=== PATIENT | female | born 1970 | race Hispanic/Latino ===

== ENCOUNTER 2017-08-25 17:52 | Emergency (ER) | payer MEDICAID ==
[2017-08-25 18:18] VITALS: BP 124/87; PULSE 95; RESP 17; TEMP 97.7; O2SAT 98; BMI 28.3
--- NOTE | 2017-08-25 18:25 | ED PDOC ---
Arrival/HPI - General Chief Complaint: Back Pain Time Seen by Provider: 08/25/17 18:06 Historian: Patient - History of Present Illness Narrative History of Present Illness (Text): 08/25/17 18:21 46yo female who present with complaint of lower back pain x 2days. she notes history of herniated disc. Notes history of similar pain in the past. states her pain usually resolve with Naprosyn, but she ran out of Naprosyn. Pain is usually with ambulation or movement. she took OTC motrin without relieve. she denies abdominal pain, ripping/tearing upper back pain, trauma, focal weakness, urinary/fecal incontinence, any other complaint. Past Medical History - Provider Review Nursing Documentation Reviewed: Yes - Cardiac Hx Hypertension: Yes - Pulmonary Hx Respiratory Disorders: No - Neurological Hx Neurological Disorder: No - HEENT Hx HEENT Disorder: No - Renal Hx Renal Disorder: No - Endocrine/Metabolic Hx Endocrine Disorders: No - Hematological/Oncological Hx Blood Disorders: No - Integumentary Hx Dermatological Disorder: No - Musculoskeletal/Rheumatological Hx Musculoskeletal Disorders: No - Gastrointestinal Hx Gastrointestinal Disorders: No - Genitourinary/Gynecological Hx Genitourinary Disorders: No - Psychiatric Hx Psychophysiologic Disorder: No Hx Substance Use: No - Surgical History Hx Hysterectomy: Yes - Anesthesia Hx Anesthesia: Yes Family/Social History - Physician Review Nursing Documentation Reviewed: Yes Family/Social History: Unknown Family HX Smoking Status: Never Smoked Hx Alcohol Use: No Hx Substance Use: No Allergies/Home Meds Allergies/Adverse Reactions: Allergies No Known Allergies Allergy (Verified 08/25/17 18:18) Review of Systems - Physician Review All systems were reviewed & negative as marked: Yes - Review of Systems Constitutional: Normal Eyes: Normal ENT: Normal Respiratory: Normal Cardiovascular: Normal Gastrointestinal: Normal Genitourinary Female: Normal Musculoskeletal: Back Pain Skin: Normal Neurological: Normal Endocrine: Normal Hemo/Lymphatic: Normal Psychiatric: Normal Physical Exam Vital Signs Reviewed: Yes Vital Signs Temp Pulse Resp BP Pulse Ox 08/25/17 18:18 97.7 F 95 H 17 124/87 98 08/25/17 18:17 97.7 F 95 H 17 124/87 98 Temperature: Afebrile Blood Pressure: Normal Pulse: Regular Respiratory Rate: Normal Appearance: Positive for: Well-Appearing, Non-Toxic, Comfortable Pain Distress: Mild Mental Status: Positive for: Alert and Oriented X 3 - Systems Exam Head: Present: Atraumatic, Normocephalic Pupils: Present: PERRL Extroacular Muscles: Present: EOMI Conjunctiva: Present: Normal Mouth: Present: Moist Mucous Membranes Neck: Present: Normal Range of Motion Respiratory/Chest: Present: Clear to Auscultation, Good Air Exchange. No: Respiratory Distress, Accessory Muscle Use Cardiovascular: Present: Regular Rate and Rhythm, Normal S1, S2. No: Murmurs Abdomen: Present: Normal Bowel Sounds. No: Tenderness, Distention, Peritoneal Signs Back: Present: Pain with Leg Raise (B/L). No: Midline Tenderness, Paraspinal Tenderness Upper Extremity: Present: Normal Inspection. No: Cyanosis, Edema Lower Extremity: Present: Normal Inspection. No: Edema Neurological: Present: GCS=15, CN II-XII Intact, Speech Normal Skin: Present: Warm, Dry, Normal Color. No: Rashes Psychiatric: Present: Alert, Oriented x 3, Normal Insight, Normal Concentration Medical Decision Making ED Course and Treatment: 08/25/17 22:46 Pt was ambulatory with normal gait on DC. She was DC home with Naprosyn and flexeril. Referred to her PMD. TRT ED for any new or worsening symptoms - Medication Orders Current Medication Orders: Discontinued Medications Diazepam (Valium) 5 mg PO ONCE ONE PRN Reason: Protocol Stop: 08/25/17 18:22 Last Admin: 08/25/17 18:57 Dose: 5 mg Ketorolac Tromethamine (Toradol) 60 mg IM STAT STA Stop: 08/25/17 18:22 Last Admin: 08/25/17 18:57 Dose: 60 mg MAR Pain Assessment Document 08/25/17 18:57 [place] (Rec: 08/25/17 18:57 [id number]) Pain Reassessment Is this a pain reassessment? No Sleep Is patient sleeping during reassessment? No Presence of Pain Presence of Pain Yes Pain Scale Used Pain Scale Used Numeric IM Administration Charges Document 08/25/17 18:57 [place] (Rec: 08/25/17 18:57 [place] [email or web address]) Charges for Administration # of IM Administrations 1 Disposition/Present on Arrival - Present on Arrival Any Indicators Present on Arrival: No History of DVT/PE: No History of Uncontrolled Diabetes: No Urinary Catheter: No History of Decub. Ulcer: No History Surgical Site Infection Following: None - Disposition Have Diagnosis and Disposition been Completed?: Yes Diagnosis: Back pain Disposition: HOME/ ROUTINE Disposition Time: 19:30 Patient Plan: Discharge Condition: FAIR Discharge Instructions (ExitCare): Back Pain (ED) Additional Instructions: Follow up with your doctor Return to ED for any new or worsening symptoms Prescriptions: Cyclobenzaprine [Cyclobenzaprine HCl] 10 mg PO BID #10 tab Naproxen [Naprosyn] 500 mg PO BID #20 tab Omeprazole 20 mg PO DAILY #10 capsule. [place]errals: [facility] [place] [facility] [place] - Follow up with primary Forms: [employer] (Greenlandic)
== END 2017-08-25 19:02 | disposition home or self-care (01) ==
LOC: ED 17:52
DX: M54.5 Low back pain (principal); I10 Essential (primary) hypertension
CPT/HCPCS: 96372; 99283; J1885

== ENCOUNTER 2018-10-22 16:48 | Emergency (ER) | payer MEDICAID ==
[2018-10-22 16:49] VITALS: BMI 28.3
[2018-10-22 16:56] VITALS: RESP 18; TEMP 98.6
[2018-10-22] MEDS ORDERED: Apap-Butalbital-Caffeine 325-50-40mg Tab PO STA (17:32)
--- NOTE | 2018-10-22 17:42 | ED PDOC ---
Arrival/HPI - General Chief Complaint: High Blood Pressure Historian: Patient - History of Present Illness Narrative History of Present Illness (Text): 10/22/18 17:33 47 y/o F w/ h/o HTN presenting to the Emergency Room complaining of gradual onset of a right sided headache. She describes her headache originating near the right spiritism with associated dizziness. She admits to not taking her antihypertensive medication(Lisinopril) for for the last 2 days after running out of her medications. She attributed her symptoms to her blood pressure being elevated. She denies taking any medication prior arrival for the pain. She denies chest pain, shortness of breath, back pain, visual disturbances, parathesias, back pain, jaw pain, abdominal pain, dysuria, hematuria, syncopal episodes, back pain nausea or vomiting. Time/Duration: 24 hours Symptom Onset: Gradual Symptom Course: Unchanged Quality: Pressure Severity Level: Moderate Activities at Onset: Rest Context: Home Past Medical History - Provider Review Nursing Documentation Reviewed: Yes - Travel History Have you recently traveled outside [place] w/in the past 3 mons?: No - Cardiac Hx Hypertension: Yes - Pulmonary Hx Respiratory Disorders: No - Neurological Hx Neurological Disorder: No - HEENT Hx HEENT Disorder: No - Renal Hx Renal Disorder: No - Endocrine/Metabolic Hx Endocrine Disorders: No - Hematological/Oncological Hx Blood Disorders: No - Integumentary Hx Dermatological Disorder: No - Musculoskeletal/Rheumatological Hx Musculoskeletal Disorders: No - Gastrointestinal Hx Gastrointestinal Disorders: No - Genitourinary/Gynecological Hx Genitourinary Disorders: No - Psychiatric Hx Psychophysiologic Disorder: No Hx Substance Use: No - Surgical History Hx Hysterectomy: Yes - Anesthesia Hx Anesthesia: Yes Family/Social History - Physician Review Nursing Documentation Reviewed: Yes Family/Social History: Unknown Family HX Smoking Status: Never Smoked Hx Alcohol Use: No Hx Substance Use: No Allergies/Home Meds Allergies/Adverse Reactions: Allergies No Known Allergies Allergy (Verified 10/22/18 16:56) Home Medications: Home Meds Medication Instructions Recorded Confirmed RX: Lisinopril [Zestril] 5 mg PO DAILY 10/22/18 10/22/18 Review of Systems - Review of Systems Eyes: absent: Vision Changes, Photophobia, Eye Pain Respiratory: absent: SOB, Cough, Wheezing Cardiovascular: absent: Chest Pain Gastrointestinal: absent: Abdominal Pain Genitourinary Female: absent: Dysuria, Frequency, Hematuria Neurological: Headache, Dizziness. absent: Focal Weakness Psychiatric: absent: Anxiety Physical Exam Vital Signs Reviewed: Yes Vital Signs Temp Pulse Resp BP Pulse Ox 10/22/18 16:54 98.6 F 92 H 18 140/87 100 Temperature: Afebrile Blood Pressure: Normal Pulse: Regular Respiratory Rate: Normal Appearance: Positive for: Well-Appearing, Non-Toxic, Comfortable Mental Status: Positive for: Alert and Oriented X 3 - Systems Exam Head: Present: Atraumatic, Normocephalic Pupils: Present: PERRL Extroacular Muscles: Present: EOMI Conjunctiva: Present: Normal Mouth: Present: Moist Mucous Membranes Neck: Present: Normal Range of Motion Respiratory/Chest: Present: Clear to Auscultation, Good Air Exchange. No: Respiratory Distress, Accessory Muscle Use Cardiovascular: Present: Regular Rate and Rhythm, Normal S1, S2. No: Murmurs Abdomen: Present: Normal Bowel Sounds. No: Tenderness, Distention, Peritoneal Signs Upper Extremity: Present: Normal Inspection. No: Cyanosis, Edema Lower Extremity: Present: Normal Inspection. No: Edema Neurological: Present: GCS=15, CN II-XII Intact, Speech Normal Skin: Present: Warm, Dry, Normal Color. No: Rashes Psychiatric: Present: Alert, Oriented x 3, Normal Insight, Normal Concentration Medical Decision Making ED Course and Treatment: 10/22/18 17:46 Impression 47 y/o F w/ h/o HTN presenting to the ED with complaint of dizziness Differential Diagnoses Include But Are Not Limited --Hypertensive Urgency/Emergency --Tension Headache Plan --UA --Fioricet --Motrin --Reassess & disposition Progress Notes 10/22/18 18:08 UA negative for any protein, ketones or bacteria within the urine, thus lowering the possibility of acute renal insult. BP 140/87 without use of medication. CTH not required at this time. Will reassess headache symptoms later. 10/22/18 18:19 Patient reevaluated and feels much better. Importance of adhering to antihypertensive medications and monitoring symptoms stressed to patient. She demonstrates understanding and will follow up with her PCP. Clinic information provided. Scripts provided. She is stable discharge. - Lab Interpretations Lab Results: Lab Results 10/22/18 17:36: Urine Color Yellow, Urine Appearance Clear, Urine pH 7.0, Ur Specific [place] 1.020, Urine Protein Negative, Urine Glucose (UA) Negative, Urine Ketones Negative, Urine Blood Negative, Urine Nitrate Negative, Urine Bilirubin Negative, Urine Urobilinogen 0.2, Ur Leukocyte Esterase Negative I have reviewed the lab results: Yes Disposition/Present on Arrival - Present on Arrival Any Indicators Present on Arrival: No History of DVT/PE: No History of Uncontrolled Diabetes: No Urinary Catheter: No History of Decub. Ulcer: No History Surgical Site Infection Following: None - Disposition Have Diagnosis and Disposition been Completed?: Yes Diagnosis: Headache Disposition: HOME/ ROUTINE Disposition Time: 18:21 Patient Plan: Discharge Condition: IMPROVED Discharge Instructions (ExitCare): Sinus Headache (DC), Headache, Adult (DC), Tension Headache (DC) Print Language: [place]ICAN CITIZEN Additional Instructions: Please follow up in clinic for BP medication refill and follow up in 1-2 days Prescriptions: Lisinopril [Zestril] 5 mg PO DAILY #10 tablet Referrals: Jeanne Philippe MD [Medical Doctor] - Follow up with primary [facility] at [facility] [place]] - Follow up with primary Forms: [employer] (Telugu)
[2018-10-22 17:55] LABS: URINE BILIRUBIN NEGATIVE (NEGATIVE); URINE BLOOD NEGATIVE (NEGATIVE); URINE GLUCOSE (UA) NEGATIVE (NEGATIVE); URINE LEUKOCYTE ESTERASE NEGATIVE Leu/uL (NEGATIVE); URINE PROTEIN NEGATIVE mg/dL (<30 mg/dL); URINE UROBILINOGEN 0.2 E.U./dL (<1 E.U./dL)
[2018-10-22 17:56] LABS: URINE APPEARANCE CLEAR (CLEAR); URINE COLOR YELLOW (YELLOW)
[2018-10-22 18:45] VITALS: BP 132/84; PULSE 78; O2SAT 99
== END 2018-10-22 18:43 | disposition home or self-care (01) ==
LOC: ED 16:48
DX: R51 Headache (principal); I10 Essential (primary) hypertension

== ENCOUNTER 2019-01-25 15:20 | Outpatient (CLI) | payer MEDICAID | END 2019-01-25 15:21 | disposition home or self-care (01) | LOC: RAD 15:20 ==